=== PATIENT | female | born 1980 | race African-American/Black ===

== ENCOUNTER 2019-06-02 16:10 | Emergency (ER) | payer SELFPAY ==
[2019-06-02] MEDS ORDERED: Ibuprofen 200 MG TAB ONE (16:43)
[2019-06-02 17:24] LABS: Bilirubin Negative (Negative); Blood, Urine 3+ (Negative); Clarity Turbid (Clear); Glucose, Urine (Dipstick) Normal (Negative); Leukocyte 500 Leu/uL (Negative); Nitrite Negative (Negative); Protein, Urine (Dipstick) 30 mg/dL (Neg-Trace); Urobilinogen Normal mg/dL (Less than 2)
[2019-06-02 17:33] LABS: Bacteria/HPF 1+ HPF (None Seen); WBC/HPF 21-50 HPF (0-3)
== END 2019-06-02 18:29 | disposition home or self-care (01) ==
LOC: ERS 16:10
DX: J10.1 Influenza due to other identified influenza virus with other respiratory manifestations (principal); N39.0 Urinary tract infection, site not specified; K21.9 Gastro-esophageal reflux disease without esophagitis; F41.9 Anxiety disorder, unspecified; F17.210 Nicotine dependence, cigarettes, uncomplicated
CPT/HCPCS: 81003; 81015; 87804; 99283